=== PATIENT | male | born 1990 | race Caucasian/White ===

== ENCOUNTER 2017-01-08 07:42 | Inpatient (IN) | payer BC, OTHER ==
[~2017-01-08] VITALS: Ht 177.8 cm; Wt 63.5 kg
[2017-01-08] VITALS: BP 113/54
[2017-01-08] MEDS ORDERED: diphenhydrAMINE 50 MG CAPSULE PO PRN (15:45)
[2017-01-08] MEDS ORDERED: ACETAMINOPHEN 325 MG TABLET PO PRN (15:45)
[2017-01-08] MEDS ORDERED: DICYCLOMINE HCL 20 MG TABLET PO PRN (15:45)
[2017-01-08] MEDS ORDERED: METHOCARBAMOL 750 MG TABLET PO PRN (15:45)
[2017-01-08] MEDS ORDERED: LOPERAMIDE HCL 2 MG CAPSULE PO PRN ×2 (15:45)
[2017-01-08] MEDS ORDERED: BUPRENORPHINE HCL 2 MG TAB.SUBL SL PRN (15:45)
[2017-01-08] MEDS ORDERED: DOCUSATE SODIUM 250 MG CAPSULE PO PRN (15:45)
[2017-01-08] MEDS ORDERED: MAG HYDROX/AL HYDROX/SIMETH 30 ML LIQUID UDC PO PRN (15:45)
[2017-01-08] MEDS ORDERED: CLONIDINE HCL 0.1 MG TABLET PO PRN (15:45)
[2017-01-08] MEDS ORDERED: MAGNESIUM HYDROXIDE 30 ML LIQUID UDC PO PRN (15:45)
[2017-01-08] MEDS ORDERED: PROMETHAZINE HCL 25 MG/1 ML VIAL IM PRN (15:45)
[2017-01-08] MEDS ORDERED: MIRALAX 17 GM POWD.PACK PO PRN (15:45)
[2017-01-08] MEDS ORDERED: HYDROXYZINE PAMOATE 25 MG CAPSULE PO PRN (15:45)
[2017-01-08] MEDS ORDERED: ONDANSETRON ODT 4 MG TAB.RAPDIS SL PRN (15:45)
[2017-01-08 17:38] LABS: *AMPHETAMINE, URINE NEGATIVE (NEGATIVE); *BARBITURATE, URINE NEGATIVE (NEGATIVE); *CANNABINOID, URINE NEGATIVE (NEGATIVE); *COCCAINE, URINE NEGATIVE (NEGATIVE); *OPIATE, URINE POSITIVE (NEGATIVE); *PHENCYCLIDINE SCREEN,URINE NEGATIVE (NEGATIVE)
[2017-01-08 17:48] LABS: HEMATOCRIT 42.8 % (40.0-50.0); HEMOGLOBIN 14.4 g/dL (14.0-18.0); MEAN CORPUSCULAR HEMOGLOBIN 28.7 uug (27.0-31.0); MEAN CORPUSCULAR HGB CONC 34 g/dL (32.0-37.0); MEAN CORPUSCULAR VOLUME 85.3 fL (82.0-92.0); PLATELET COUNT (AUTO) 177 K/uL (150-450); RED BLOOD CELL COUNT(AUTO) 5.02 MIL/uL (4.70-6.10); RED CELL DISTRIBUTION WIDTH 11.8 % (11.5-14.5); WHITE BLOOD COUNT (AUTO) 5.2 K/uL (4.0-11.2)
[2017-01-08 17:56] LABS: ETHANOL < 3 MG/DL (0-0)
[2017-01-08 17:59] LABS: ALANINE AMINOTRANSFERASE 46 U/L (16-63); ALBUMIN 4.6 g/dL (3.4-5.0); ALKALINE PHOSPHATASE 69 U/L (50-136); ASPARTATE AMINOTRANSFERASE 39 U/L (15-37); BILIRUBIN,TOTAL 0.4 mg/dL (0.2-1.0); CALCIUM 9.8 mg/dL (8.5-10.1); CARBON DIOXIDE 32 mmol/L (21-32); CHLORIDE 101 mmol/L (98-107); CREATININE 0.9 mg/dL (0.6-1.3); GFR 104 mL/min (>60); GLUCOSE 80 mg/dL (74-106); MAGNESIUM 2.3 mg/dL (1.8-2.4); POTASSIUM 4.1 mmol/L (3.5-5.1); SODIUM SERUM 140 mmol/L (136-145); UREA NITROGEN, BLOOD 12 mg/dL (7-18)
[2017-01-08 18:08] LABS: BAND % (MANUAL) 4 % (0-10); LYMPHOCYTES % (MANUAL) 8 % (20-40); MONOCYTES % (MANUAL) 10 % (2-10); NEUTROPHILS % (MANUAL) 78 % (42-75); PLATELET ESTIMATE ADEQUATE
[2017-01-08 18:11] LABS: HIV-1 p24 ANTIGEN NON REACTIVE (NONREACTIVE); HIV-1/2 ANTIBODY NON REACTIVE (NONREACTIVE)
[2017-01-08 18:32] LABS: THYROID STIMULATING HORMONE 0.854 mIU/mL (0.358-3.740)
[2017-01-08 20:00] VITALS: BP 110/64
[2017-01-09] VITALS (7 sets, daily range): BP systolic 113–141; BP diastolic 54–99
[2017-01-09] MEDS: MULTIVITAMINS,THERAPEUTIC TABLET PO SCH (08:31)
[2017-01-09] MEDS: BUPRENORPHINE HCL 2 MG TAB.SUBL SL SCH ×4 (08:32→21:49)
[2017-01-09] MEDS ORDERED: TUBERCULIN,PURIF.PROT.DERIV. 5 TU/0.1 ML TEST ID ONE (09:00)
[2017-01-10] VITALS: BP 119/75
[2017-01-10 08:00] VITALS: BP 109/70
[2017-01-10] MEDS: BUPRENORPHINE HCL 2 MG TAB.SUBL SL SCH ×3 (08:26→21:36)
[2017-01-10] MEDS: MULTIVITAMINS,THERAPEUTIC TABLET PO SCH (08:26)
[2017-01-10] MEDS: DOCUSATE SODIUM 250 MG CAPSULE PO SCH (08:26)
[2017-01-10 12:00] VITALS: BP 125/80
[2017-01-10 16:00] VITALS: BP 135/89
[2017-01-10 20:00] VITALS: BP 119/70
[2017-01-10] MEDS: TRAZODONE 100 MG TABLET PO PRN (22:42)
[2017-01-11] VITALS: BP 124/78
[2017-01-11 04:00] VITALS: BP 115/70
[2017-01-11 08:00] VITALS: BP 114/66
[2017-01-11] MEDS ORDERED: BUPRENORPHINE HCL 2 MG TAB.SUBL SL SCH (09:00)
[2017-01-11] MEDS: DOCUSATE SODIUM 250 MG CAPSULE PO SCH (09:21)
[2017-01-11] MEDS: MULTIVITAMINS,THERAPEUTIC TABLET PO SCH (09:21)
[2017-01-11 12:00] VITALS: BP 116/64
[2017-01-11] MEDS: GABAPENTIN 300 MG CAPSULE PO SCH ×2 (14:16→21:36)
[2017-01-11] MEDS: LIDOCAINE 5% PATCH TD SCH (14:16)
[2017-01-11] MEDS: CLONIDINE HCL 0.1 MG TABLET PO SCH ×2 (14:16→21:36)
[2017-01-11] MEDS: BACLOFEN 20 MG TABLET PO SCH ×2 (14:16→21:36)
[2017-01-11] MEDS: BUPRENORPHINE HCL 2 MG TAB.SUBL SL SCH ×2 (14:18→21:36)
[2017-01-11 16:00] VITALS: BP 105/68
[2017-01-11 20:00] VITALS: BP 119/73
[2017-01-12 03:06] LABS: HCV AB <0.1 s/co ratio (0.0-0.9); HEPATITIS B CORE AB, IgM Negative (Negative); HEPATITIS B SURFACE AG Negative (Negative)
[2017-01-12 08:00] VITALS: BP 118/75
[2017-01-12] MEDS: GABAPENTIN 300 MG CAPSULE PO SCH ×3 (08:30→21:05)
[2017-01-12] MEDS: DOCUSATE SODIUM 250 MG CAPSULE PO SCH (08:30)
[2017-01-12] MEDS: MULTIVITAMINS,THERAPEUTIC TABLET PO SCH (08:30)
[2017-01-12] MEDS: BUPRENORPHINE HCL 2 MG TAB.SUBL SL SCH ×3 (08:30→21:09)
[2017-01-12] MEDS: IBUPROFEN 600 MG TABLET PO PRN ×2 (08:30→21:05)
[2017-01-12] MEDS: CLONIDINE HCL 0.1 MG TABLET PO SCH ×3 (08:30→21:04)
[2017-01-12] MEDS: LIDOCAINE 5% PATCH TD SCH (08:30)
[2017-01-12] MEDS: BACLOFEN 20 MG TABLET PO SCH ×3 (08:30→21:05)
[2017-01-12] MEDS: DULOXETINE 30 MG CAPSULE.DR PO SCH ×2 (11:18→18:47)
[2017-01-12 12:00] VITALS: BP 137/99
[2017-01-12 16:00] VITALS: BP 132/86
[2017-01-12] MEDS ORDERED: BISACODYL 5 MG TABLET.DR PO PRN (19:30)
[2017-01-12] MEDS ORDERED: MAGNESIUM CITRATE 296 ML BOTTLE PO PRN (19:30)
[2017-01-12] MEDS ORDERED: BISACODYL 10 MG SUPP.RECT RC PRN (19:30)
[2017-01-12 20:00] VITALS: BP 108/66
[2017-01-12] MEDS: TRAZODONE 100 MG TABLET PO PRN (22:51)
[2017-01-13 08:00] VITALS: BP 118/61
[2017-01-13] MEDS ORDERED: BUPRENORPHINE HCL 2 MG TAB.SUBL SL SCH (09:00)
[2017-01-13] MEDS: DOCUSATE SODIUM 250 MG CAPSULE PO SCH (09:41)
[2017-01-13] MEDS: DULOXETINE 30 MG CAPSULE.DR PO SCH ×2 (09:41→17:00)
[2017-01-13] MEDS: CLONIDINE HCL 0.1 MG TABLET PO SCH ×2 (09:42→21:50)
[2017-01-13] MEDS: MULTIVITAMINS,THERAPEUTIC TABLET PO SCH (09:42)
[2017-01-13] MEDS: GABAPENTIN 300 MG CAPSULE PO SCH ×2 (09:42→15:32)
[2017-01-13] MEDS: LIDOCAINE 5% PATCH TD SCH (09:43)
[2017-01-13] MEDS: BACLOFEN 20 MG TABLET PO SCH ×3 (09:57→21:50)
[2017-01-13 12:00] VITALS: BP 121/70
[2017-01-13] MEDS ORDERED: KETOROLAC TROMETHAMINE 30 MG INJ IM PRN (12:45)
[2017-01-13] MEDS ORDERED: DICY20TA28 PO (12:48)
[2017-01-13] MEDS ORDERED: CLON0.1T14 PO (12:48)
[2017-01-13] MEDS ORDERED: HYDR-3895 PO (12:48)
[2017-01-13] MEDS ORDERED: Trazodone Hcl PO (12:48)
[2017-01-13] MEDS ORDERED: Duloxetine Hcl PO (12:48)
[2017-01-13] MEDS ORDERED: Gabapentin PO ×2 (12:48)
[2017-01-13] MEDS ORDERED: Docusate Sodium PO (12:48)
[2017-01-13] MEDS ORDERED: Ibuprofen PO (12:48)
[2017-01-13] MEDS ORDERED: Baclofen PO (12:48)
[2017-01-13] MEDS ORDERED: LIDO30AD10 TD (12:48)
[2017-01-13] MEDS: IBUPROFEN 600 MG TABLET PO PRN (15:36)
[2017-01-13 16:00] VITALS: BP 125/76
[2017-01-13 20:00] VITALS: BP 119/75
[2017-01-13] MEDS ORDERED: GABAPENTIN 300 MG CAPSULE PO SCH (21:00)
[2017-01-13 23:35] VITALS: BP 102/66
[2017-01-13] MEDS: TRAZODONE 100 MG TABLET PO PRN (23:37)
[2017-01-14] VITALS: BP 102/66
[2017-01-14 07:19] LABS: *AMPHETAMINE, URINE NEGATIVE (NEGATIVE); *BARBITURATE, URINE NEGATIVE (NEGATIVE); *CANNABINOID, URINE NEGATIVE (NEGATIVE); *COCCAINE, URINE NEGATIVE (NEGATIVE); *OPIATE, URINE POSITIVE (NEGATIVE); *PHENCYCLIDINE SCREEN,URINE NEGATIVE (NEGATIVE)
[2017-01-14 08:39] VITALS: BP 135/83
[2017-01-14 09:17] VITALS: BP 135/75
[2017-01-14] MEDS: LIDOCAINE 5% PATCH TD SCH (09:17)
[2017-01-14] MEDS: DOCUSATE SODIUM 250 MG CAPSULE PO SCH (09:17)
[2017-01-14] MEDS: DULOXETINE 30 MG CAPSULE.DR PO SCH (09:17)
[2017-01-14] MEDS: GABAPENTIN 300 MG CAPSULE PO SCH (09:17)
[2017-01-14] MEDS: CLONIDINE HCL 0.1 MG TABLET PO SCH (09:17)
[2017-01-14] MEDS: BACLOFEN 20 MG TABLET PO SCH (09:17)
[2017-01-14] MEDS: MULTIVITAMINS,THERAPEUTIC TABLET PO SCH (09:17)
== END 2017-01-14 10:00 | disposition other institution (70) | DRG 895 ==
LOC: SRC 15:03
PROVIDERS: ADMIT Internal Medicine; ATTEND Internal Medicine
PROC: HZ2ZZZZ Detoxification Services for Substance Abuse Treatment (ICD-10-PCS; principal; 2017-01-08)
PROC: HZ41ZZZ Group Counseling for Substance Abuse Treatment, Behavioral (ICD-10-PCS; 2017-01-09)
DX: F11.23 Opioid dependence with withdrawal (principal); Z80.3 Family history of malignant neoplasm of breast; Z81.4 Family history of other substance abuse and dependence; F41.1 Generalized anxiety disorder; K59.03 Drug induced constipation; F12.90 Cannabis use, unspecified, uncomplicated; F17.210 Nicotine dependence, cigarettes, uncomplicated; G89.29 Other chronic pain; M54.5 Low back pain; F32.9 Major depressive disorder, single episode, unspecified; R74.0 Nonspecific elevation of levels of transaminase and lactic acid dehydrogenase [LDH]
CPT/HCPCS: 36415; 70030-TC; 80307; 80361; 83735; 84443; 85025; 86580; 86592; 86705; 86803; 87340; 87806; A4663; G6040-TC; J1885; Q0163